=== PATIENT | female | born 1990 | race Caucasian/White ===

== ENCOUNTER 2017-01-08 15:14 | Emergency (ER) | payer OTHER ==
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
[~2017-01-08 15:14] MED LIST: ACETAMINOPHEN; AMOXICILLIN PO; AMOXICILLIN875 MG PO; BACLOFEN10 MG PO; BACTRIM DS TABL1 TAB PO; FISH OIL 1,0001 CAP PO; FLEXERIL10 MG PO; IBUPROFEN PO; IBUPROFEN800 MG PO; LYRICA25 MG PO; NAPROXEN SODIU500 MG; NAPROXEN SODIU500 MG PO; NO MEDICATIONS; NORCO1 TAB 10/3; PARAFON FORTE500 M2; PERCOCET PO; PREDNISONE10 MG PO; PRENATAL VITAMI1 TA3 PO; PRILOSEC; PYRIDIUM PO; VICODIN 5/500 T1 TAB PO
[2017-01-08] MEDS ORDERED: ZANAFLEX (15:24)
== END 2017-01-08 17:22 | disposition home or self-care (01) ==
LOC: SED 15:14
DX: S20.219A Contusion of unspecified front wall of thorax, initial encounter (principal); Z79.899 Other long term (current) drug therapy; V49.50XA Passenger injured in collision with unspecified motor vehicles in traffic accident, initial encounter
CPT/HCPCS: 71010; 71120; 96372; 99284; J1885